=== PATIENT | male | born 1980 | race Caucasian/White ===

== ENCOUNTER 2017-07-01 10:32 | Emergency (ER) | payer BC ==
[~2017-07-01] VITALS: Ht 180.3 cm; Wt 97.5 kg
[~2017-07-01 10:32] MED LIST: ACETAMINOPHEN325 M1 PO; AMLODIPINE BESY10 MG PO; AMLODIPINE BESYL5 MG PO; DIOVAN160 MG PO; HYDROCODON-ACE1 EAC9 PO; PANTOPRAZOLE SO20 MG PEG; [UNRECOGNIZED DRUG - MIXTURE] PO
[2017-07-01] MEDS ORDERED: SODIUM CHLORIDE 0.9% 1000ML 1,000 ML IV STA (11:39)
[2017-07-01] MEDS ORDERED: ONDANSETRON HCL INJ 2 MG/ML VIAL IV STA (11:39)
[2017-07-01 11:44] LABS: BASOPHILS % 0.2 % (0.0-1.0); EOSINOPHILS % 0.4 % (0.0-6.0); HEMATOCRIT 34.2 % (38.2-49.6); HEMOGLOBIN 11.7 g/dL (14.0-18.0); LYMPHOCYTES % 11.5 % (18.0-39.1); MEAN CORPUSCULAR HGB CONC 34.2 g/dL (31-35); MEAN CORPUSCULAR VOLUME 87.7 fL (81-99); MONOCYTES # (AUTO) 0.7 (0.2-0.8); MONOCYTES % 8.1 % (4.4-11.3); NEUTROPHILS # (AUTO) 7.2 (2.1-6.9); NEUTROPHILS % 79.5 % (38.7-80.0); PLATELET COUNT 185 x10e3/uL (140-360); RED CELL DISTRIBUTION WIDTH 14.1 % (11.7-14.4)
[2017-07-01] MEDS ORDERED: MORPHINE SULFATE 2 MG/ML SYR IV ONE (12:00)
[2017-07-01 12:07] LABS: ALANINE AMINOTRANSFERASE 11 IU/L (0-55); ALBUMIN/GLOBULIN RATIO 0.7 (0.8-2.0); ALKALINE PHOSPHATASE 72 IU/L (40-150); AMYLASE 81 U/L (25-125); ANION GAP 15.5 mmol/L (8-16); BLOOD UREA NITROGEN 12 mg/dL (7-26); BUN/CREATININE RATIO 17 (6-25); CALCIUM 9.1 mg/dL (8.4-10.2); CARBON DIOXIDE 24 mmol/L (22-29); CHLORIDE 100 mmol/L (98-107); CHOLESTEROL 146 MD/DL (0-199); EST GLOMERULAR FILTRATION RATE > 60 ML/MIN (60-); GLUCOSE 83 mg/dL (74-118); HDL CHOLESTEROL 35 MG/DL (40-60); LIPASE 121 U/L (8-78); POTASSIUM 3.5 mmol/L (3.5-5.1); SODIUM 136 mmol/L (136-145)
[2017-07-01 12:37] LABS: TRIGLYCERIDES 92 MG/DL (0-149)
[2017-07-01 12:38] LABS: CHOL/HDL RATIO 4.2 (3.9-4.7); LDL CHOLESTEROL 93 MG/DL (60-130)
[2017-07-01] MEDS ORDERED: ZOFRAN4 MG SL (12:42)
[2017-07-01] MEDS ORDERED: ZOFRAN ODT4 MG SL (12:44)
[2017-07-01] MEDS ORDERED: TYLENOL WITH C1 EACH PO (12:45)
[2017-07-01 12:59] LABS: BILIRUBIN,URINE 1+ (NEGATIVE); CLARITY,URINE CLEAR (CLEAR); COLOR,URINE YELLOW (YELLOW); KETONES,URINE 3+ (NEGATIVE); LEUKOCYTE ESTERASE ,URINE TRACE (NEGATIVE); NITRITE,URINE NEGATIVE (NEGATIVE); PROTEIN,URINE DIPSTICK NEGATIVE (NEGATIVE); URINE UROBILINOGEN 8 mg/dL (0.2 - 1)
[2017-07-01 13:09] LABS: EPITHELIAL CELLS,URINE FEW /LPF; MUCUS,URINE MODERATE (RARE); RBC,URINE 0-5 /HPF (0-5); WBC,URINE (MAN) 0-5 /HPF (0-5)
== END 2017-07-01 13:42 | disposition home or self-care (01) ==
LOC: ER 10:32
DX: R50.9 Fever, unspecified (principal); R10.12 Left upper quadrant pain; R11.2 Nausea with vomiting, unspecified; F17.210 Nicotine dependence, cigarettes, uncomplicated
CPT/HCPCS: 36415; 80053; 80061; 81001; 82150; 83690; 85025; 87086; 99284; J2270; J2405; J7030

== ENCOUNTER 2018-03-13 20:10 | Inpatient (IN) | payer BC ==
[~2018-03-13] VITALS: Ht 180.3 cm; Wt 97.1 kg
[~2018-03-13 20:10] MED LIST changes: +TYLENOL WITH C1 EACH PO; +ZOFRAN ODT4 MG SL; +ZOFRAN4 MG SL
[2018-03-13] MEDS ORDERED: MORPHINE SULFATE INJ 4 MG/ML INJ IV STA ×2 (20:19→23:36)
[2018-03-13] MEDS ORDERED: ONDANSETRON HCL INJ 2 MG/ML VIAL IV STA ×2 (20:19→23:36)
[2018-03-13] MEDS ORDERED: SODIUM CHLORIDE 0.9% 1000ML 1,000 ML IV STA ×2 (20:19→23:36)
[2018-03-13 21:16] LABS: BILIRUBIN,URINE 2+ (NEGATIVE); CLARITY,URINE SL CLOUDY (CLEAR); COLOR,URINE YELLOW (YELLOW); KETONES,URINE 1+ (NEGATIVE); LEUKOCYTE ESTERASE ,URINE NEGATIVE (NEGATIVE); NITRITE,URINE NEGATIVE (NEGATIVE); PROTEIN,URINE DIPSTICK 2+ (NEGATIVE); URINE UROBILINOGEN 8 mg/dL (0.2 - 1)
[2018-03-13 21:17] LABS: AMPHETAMINES SCREEN,URINE NEGATIVE (NEGATIVE); BENZODIAZEPINES SCREEN,URINE NEGATIVE (NEGATIVE); PHENCYCLIDINE SCREEN,URINE NEGATIVE (NEGATIVE)
[2018-03-13 21:24] LABS: BACTERIA,URINE MODERATE /HPF; EPITHELIAL CELLS,URINE MODERATE /LPF; WBC,URINE (MAN) 0-5 /HPF (0-5)
[2018-03-13 21:25] LABS: AMORPHOUS SEDIMENT,URINE MODERATE (FEW); MUCUS,URINE MANY (RARE)
[2018-03-13 21:28] LABS: BASOPHILS % 0.2 % (0.0-1.0); EOSINOPHILS % 0.3 % (0.0-6.0); HEMATOCRIT 41.7 % (38.2-49.6); HEMOGLOBIN 14.2 g/dL (14.0-18.0); LYMPHOCYTES # (AUTO) 1.2 (1.0-3.2); LYMPHOCYTES % 11.5 % (18.0-39.1); MEAN CORPUSCULAR HEMOGLOBIN 29.7 pg (28-32); MEAN CORPUSCULAR HGB CONC 34.1 g/dL (31-35); MEAN CORPUSCULAR VOLUME 87.2 fL (81-99); MONOCYTES # (AUTO) 0.7 (0.2-0.8); MONOCYTES % 6.5 % (4.4-11.3); NEUTROPHILS # (AUTO) 8.2 (2.1-6.9); NEUTROPHILS % 80.9 % (38.7-80.0); PLATELET COUNT 161 x10e3/uL (140-360); RED BLOOD COUNT 4.78 x10e6/uL (4.3-5.7); RED CELL DISTRIBUTION WIDTH 13.6 % (11.7-14.4)
[2018-03-13 21:56] LABS: INR 0.95; PROTHROMBIN TIME 13.5 seconds (11.9-14.5)
[2018-03-13 21:57] LABS: PARTIAL THROMBOPLASTIN TIME 33.1 seconds (23.8-35.5)
[2018-03-13 22:07] LABS: ALANINE AMINOTRANSFERASE 16 IU/L (0-55); ALKALINE PHOSPHATASE 82 IU/L (40-150); AMYLASE 195 U/L (25-125); ANION GAP 15.8 mmol/L (8-16); BLOOD UREA NITROGEN 16 mg/dL (7-26); BUN/CREATININE RATIO 15 (6-25); CALCIUM 10.4 mg/dL (8.4-10.2); CARBON DIOXIDE 30 mmol/L (22-29); CHLORIDE 95 mmol/L (98-107); CREATINE KINASE 51 IU/L (30-200); CREATININE, SERUM 1.04 mg/dL (0.72-1.25); EST GLOMERULAR FILTRATION RATE > 60 ML/MIN (60-); GLUCOSE 101 mg/dL (74-118); LIPASE 282 U/L (8-78); POTASSIUM 3.8 mmol/L (3.5-5.1); SODIUM 137 mmol/L (136-145)
[2018-03-14] VITALS (7 sets, daily range): BP systolic 128–151; BP diastolic 72–102
--- NOTE | 2018-03-14 00:04 | Diagnostic Imaging Report ---
EXAM: CT ABDOMEN/PELVIS W DATE: 03/13/2018 8:19 PM INDICATION: Pancreatitis, abdominal pain COMPARISON: MRI from 11/18/2016, CT 11/14/2016 TECHNIQUE: The abdomen and pelvis were scanned using a multidetector helical scanner. Coronal and sagittal reformations were obtained. CT low dose techniques were utilized, as applicable. IV Contrast: 100 ml Isovue 300/370 FINDINGS: LOWER THORAX: No consolidations. Nonspecific 3 to 4 mm left basilar subpleural nodule. LIVER/BILIARY: No masses. No ductal dilatation. GALLBLADDER: Unremarkable SPLEEN: Unremarkable PANCREAS: No pancreatic ductal dilation. Several peripancreatic pseudocysts are again seen along the pancreatic body measuring 2.9 x 2 cm and 2.2 x 1.3 cm. The largest pseudocyst has resolved. Subtle peripancreatic stranding. ADRENALS: No nodules KIDNEYS: No suspicious renal masses. No hydronephrosis. GI TRACT: Marked thickening and some mucosal edema involving the stomach. No evidence of bowel obstruction. Normal appendix. Diverticulosis. 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 PERITONEUM/RETROPERITONEUM: No free air or fluid LYMPH NODES: Likely reactive. Pancreatic nodes. REPRODUCTIVE ORGANS/BLADDER: Unremarkable SOFT TISSUES: Small fat-containing inguinal hernias. BONES: No suspicious bone lesions. IMPRESSION: 1. Findings of mild acute pancreatitis with persistent peripancreatic pseudocysts, seen dating back to 2016. Sequelae of chronic splenic vein thrombosis. 2. Marked gastric wall thickening, presumably reactive gastritis. Signed by: Dr Justina Jones MD on 03/14/2018 12:01 AM
[2018-03-14] MEDS ORDERED: MORPHINE SULFATE 2 MG/ML SYR IV STA (01:08)
[2018-03-14] MEDS ORDERED: CLONIDINE HCL 0.1 MG TAB PO ONE (01:15)
[2018-03-14] MEDS ORDERED: IOPAMIDOL 370 MG/ML 200 ML INFUS..BTL INJ ONE (01:32)
[2018-03-14] MEDS ORDERED: SODIUM CHLORIDE 0.9% 50ML 50 ML ONE (01:32)
[2018-03-14] MEDS ORDERED: PANTOPRAZOLE 40 MG 10ML VIAL IV STA (01:42)
[2018-03-14] MEDS ORDERED: D5.45%NS/KCL 20MEQ 1,000 ML IV ONE (01:45)
--- OUTSIDE RECORDS SUMMARY | 2018-03-14 01:50 | XMS REPORT ---
Author Author [facility] Address Unknown Phone Unavailable Care Team Providers Care Negotiations Director Name Role Phone Chintan MADRIGAL Unavailable Unavailable Problems This patient has no known problems. Allergies, Adverse Reactions, Alerts This patient has no known allergies or adverse reactions. Medications This patient has no known medications. Results Test Description Test Time Test Comments Text Results Atomic Results Result Comments CT ABDOMEN/PELVIS W 2018-03-13 23:50:00 [facility] [address] [address] Patient Name: JULIANO FLORES MR #: [id number] : 1980 Age/Sex: 37/M Req #: [id number] Adm Physician: Ordered by: JEREMIAS BENNETT RADIOLOGY MANAGER Report #: [id number] Location: ER Room/Bed: Procedure: [id number] CT/CT ABDOMEN/PELVIS W Exam Date: 03/13/18 Exam Time: 5 REPORT STATUS: Signed EXAM: CT ABDOMEN/PELVIS W DATE: 03/13/2018 8:19 PM INDICATION: Pancreatitis, abdominal pain COMPARISON: MRI from 11/18/2016, CT 11/14/2016 TECHNIQUE: The abdomen and pelvis were scanned using a multidetector helical scanner. Coronal and sagittal reformations were obtained. CT low dose techniques were utilized, as applicable. IV Contrast: 100 ml Isovue 300/370 FINDINGS: LOWER THORAX: No consolidations. Nonspecific 3 to 4 mm left ba silar subpleural nodule. LIVER/BILIARY: No masses. No ductal dilatation. GALLBLADDER: Unremarkable SPLEEN: Unremarkable PANCREAS: No pancreatic ductal dilation. Several peripancreatic pseudocysts are again seen along the pancreatic body measuring 2.9 x 2 cm and 2.2 x 1.3 cm. The largest pseudocyst has resolved. Subtle peripancreatic stranding. ADRENALS: No nodules KIDNEYS: No suspicious renal masses. No hydronephrosis. GI TRACT: Marked thickening and some mucosal edema involving the stomach. No evidence of bowel obstruction. Normal appendix. Diverticulosis. 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 PERITONEUM/RETROPERITONEUM: No free air or fluid LYMPH NODES: Likely reactive. Pancreatic nodes. REPRODUCTIVE ORGANS/BLADDER: Unremarkable SOFT TISSUES: Small fat-containing inguinal hernias. BONES: No suspicious bone lesions. IMPRESSION: 1. Findings of mild acute pancreatitis with persistent peripancreatic pseudocysts, seen dating back to 2017. Sequelae of chronic splenic vein thrombosis. 2. Marked gastric wall thickening, presumably reactive gastritis. Signed by: Dr Lisset Jones MD on 03/14/2018 12:01 AM Dictated By: LISSET JONES MD 0001 Transcribed By: JO on 03/14/18 0001 COPY TO: JEREMIAS BENNETT NP
[2018-03-14 01:56] LABS: CHOL/HDL RATIO 2.7 (3.9-4.7)
[2018-03-14] MEDS: MORPHINE SULFATE 2 MG/ML SYR IV PRN ×2 (04:40→08:38)
[2018-03-14] MEDS: ONDANSETRON HCL INJ 2 MG/ML VIAL IV PRN ×2 (04:40→08:38)
[2018-03-14] MEDS: PANTOPRAZOLE 40 MG 10ML VIAL IV SCH (08:38)
[2018-03-14] MEDS ORDERED: HYDRALAZINE HCL 20 MG/ML VIAL IV PRN (11:30)
[2018-03-14] MEDS ORDERED: ACETAMINOPHEN 325 MG TAB PO PRN (11:30)
[2018-03-14] MEDS: D5.45%NS/KCL 20MEQ 1,000 ML IV SCH ×2 (11:55→19:13)
[2018-03-14] MEDS: MORPHINE SULFATE INJ 4 MG/ML INJ IV PRN ×4 (12:16→22:40)
[2018-03-14] MEDS: CEFTRIAXONE SOD 1 GM VIAL IV SCH ×2 (12:37→23:50)
[2018-03-14] MEDS: NIFEDIPINE CR 30 MG TAB PO SCH (12:37)
[2018-03-15] MEDS: D5.45%NS/KCL 20MEQ 1,000 ML IV SCH ×2 (01:04→08:36)
[2018-03-15] MEDS: MORPHINE SULFATE INJ 4 MG/ML INJ IV PRN ×4 (01:52→11:24)
[2018-03-15 04:30] VITALS: BP 128/78
[2018-03-15 06:15] LABS: BASOPHILS % 0.4 % (0.0-1.0); EOSINOPHILS # (AUTO) 0.3 (0.0-0.4); EOSINOPHILS % 4.6 % (0.0-6.0); HEMATOCRIT 34.9 % (38.2-49.6); HEMOGLOBIN 11.6 g/dL (14.0-18.0); LYMPHOCYTES # (AUTO) 1.7 (1.0-3.2); LYMPHOCYTES % 31.9 % (18.0-39.1); MEAN CORPUSCULAR HEMOGLOBIN 29.7 pg (28-32); MEAN CORPUSCULAR HGB CONC 33.2 g/dL (31-35); MEAN CORPUSCULAR VOLUME 89.3 fL (81-99); MONOCYTES # (AUTO) 0.4 (0.2-0.8); MONOCYTES % 7.8 % (4.4-11.3); NEUTROPHILS % 55.1 % (38.7-80.0); PLATELET COUNT 138 x10e3/uL (140-360); RED BLOOD COUNT 3.91 x10e6/uL (4.3-5.7); RED CELL DISTRIBUTION WIDTH 13.5 % (11.7-14.4)
[2018-03-15 06:33] LABS: ALANINE AMINOTRANSFERASE 13 IU/L (0-55); ALBUMIN/GLOBULIN RATIO 0.9 (0.8-2.0); ALKALINE PHOSPHATASE 66 IU/L (40-150); AMYLASE 125 U/L (25-125); ANION GAP 9.3 mmol/L (8-16); BLOOD UREA NITROGEN 9 mg/dL (7-26); BUN/CREATININE RATIO 10 (6-25); CALCIUM 9.2 mg/dL (8.4-10.2); CARBON DIOXIDE 27 mmol/L (22-29); CHLORIDE 99 mmol/L (98-107); CREATININE, SERUM 0.91 mg/dL (0.72-1.25); EST GLOMERULAR FILTRATION RATE > 60 ML/MIN (60-); GLUCOSE 106 mg/dL (74-118); LIPASE 144 U/L (8-78); MAGNESIUM 2.2 MG/DL (1.3-2.1); POTASSIUM 4.3 mmol/L (3.5-5.1); SODIUM 131 mmol/L (136-145)
[2018-03-15 08:02] VITALS: BP 131/91
[2018-03-15] MEDS: PANTOPRAZOLE 40 MG 10ML VIAL IV SCH (08:36)
[2018-03-15] MEDS: NIFEDIPINE CR 30 MG TAB PO SCH (08:36)
[2018-03-15] MEDS ORDERED: CEFTIN PO (08:46)
[2018-03-15] MEDS ORDERED: ZOFRAN ODT4 MG SL (08:46)
[2018-03-15] MEDS ORDERED: TYLENOL WITH C1 EACH PO (08:46)
[2018-03-15] MEDS ORDERED: NIFEDIPINE ER30 M1 PO (08:46)
[2018-03-15 09:15] VITALS: BP 131/91
[2018-03-15] MEDS: CEFTRIAXONE SOD 1 GM VIAL IV SCH (11:25)
[2018-03-15 12:29] VITALS: BP 145/71
--- NOTE | 2018-03-15 17:00 | Discharge Summary ---
ADMISSION DIAGNOSES 1. Pancreatitis. 2. Hypertension. 3. History of anemia. 4. Chronic back pain. 5. Hypercalcemia. 6. Urinary tract infection. DISCHARGE DIAGNOSES 1. Pancreatitis. 2. Hypertension. 3. History of anemia. 4. Chronic back pain. 5. Hypercalcemia. 6. Urinary tract infection. 7. Bradycardia. 8. Hyponatremia. 9. Hypermagnesemia. HISTORY: Patient has a history of hypertension, chronic back pain, pancreatitis. PAST SURGICAL HISTORY: Patient denies surgical history. FAMILY HISTORY: Patient's dad has diabetes. SOCIAL HISTORY: Patient denies alcohol and illicit drug use. He admits to smoking half a pack of cigarettes a day since he was 16 years old. HOSPITAL COURSE: A 37-year-old male complains of epigastric pain that began on Monday. Pain is sharp and constant. He had associated nausea and vomiting that began on Monday and a temperature of 100.3 on the day prior to admission. On admission patient was started on IV fluids, Zofran, pain control. Patient refused a GI consult. He was started on nifedipine for his uncontrolled hypertension. On admission his hemoglobin was 14.2. Patient's calcium was 10.4 on admission. He was given IV fluids and it came down. Patient's UA was positive for bacteria, mucus. Urine culture was pending; so, patient was started on Rocephin. CT of the abdomen on admission showed findings of mild acute pancreatitis with persistent peripancreatic pseudocysts seen dating back to 2010. Day after admission patient said that he will go AMA if we do not discharge him as he needs to work and there is no way around it. Patient was discharged home, tolerating a clear-liquid diet. He will advance the diet as tolerated. He was given nausea medicine, Tylenol No. 3, nifedipine and Ceftin. Patient says he has dealt with pancreatitis enough that he knows how to and he says he cannot take off more than 2 days of work; so, he has to leave. Patient will discharge home on his own accord, follow up with primary care in 1 to 2 weeks and return to work as he feels he can tolerate it. Vital signs stable, patient afebrile. Patient understands discharge instructions and agrees to plan. Dictated by: Radha Bonilla NP PERFECTO TINSLEY MD Job#: [id number] EV
== END 2018-03-15 13:35 | disposition home or self-care (01) | DRG 439 ==
LOC: ER 20:10 → ERHOLD 03-14 01:47 → MED/SURG 03-14 02:50
PROVIDERS: ADMIT Internal Medicine; ATTEND Internal Medicine
DX: K85.90 Acute pancreatitis without necrosis or infection, unspecified (principal); N39.0 Urinary tract infection, site not specified; E87.1 Hypo-osmolality and hyponatremia; I10 Essential (primary) hypertension; E83.41 Hypermagnesemia; E83.52 Hypercalcemia; R00.1 Bradycardia, unspecified; F17.210 Nicotine dependence, cigarettes, uncomplicated; M54.9 Dorsalgia, unspecified; G89.29 Other chronic pain; Z83.3 Family history of diabetes mellitus; D64.9 Anemia, unspecified
CPT/HCPCS: 36415; 74177; 80053; 80061; 80307; 80320; 81001; 82150; 82550; 82553; 83605; 83690; 83735; 84484; 85025; 85610; 85730; 87086; 96361; 99284; J0360; J0696; J2270; J2405; J7030; Q9967

== ENCOUNTER 2018-05-20 18:35 | Inpatient (IN) | payer BC ==
[~2018-05-20] VITALS: Ht 180.3 cm; Wt 97.1 kg
[~2018-05-20 18:35] MED LIST changes: +CEFTIN PO; +NIFEDIPINE ER30 M1 PO
[2018-05-20] MEDS ORDERED: SODIUM CHLORIDE 0.9% 1000ML 1,000 ML IV STA (19:02)
[2018-05-20] MEDS ORDERED: ONDANSETRON HCL INJ 2 MG/ML VIAL IV NR (19:02)
[2018-05-20 19:31] LABS: BASOPHILS % 0.3 % (0.0-1.0); EOSINOPHILS # (AUTO) 0.1 (0.0-0.4); EOSINOPHILS % 1.1 % (0.0-6.0); HEMATOCRIT 45.6 % (38.2-49.6); LYMPHOCYTES # (AUTO) 1.8 (1.0-3.2); MEAN CORPUSCULAR HEMOGLOBIN 30.5 pg (28-32); MEAN CORPUSCULAR HGB CONC 35.1 g/dL (31-35); MONOCYTES # (AUTO) 0.6 (0.2-0.8); MONOCYTES % 5.6 % (4.4-11.3); NEUTROPHILS # (AUTO) 7.9 (2.1-6.9); NEUTROPHILS % 75.8 % (38.7-80.0); PLATELET COUNT 193 x10e3/uL (140-360); RED BLOOD COUNT 5.24 x10e6/uL (4.3-5.7); RED CELL DISTRIBUTION WIDTH 13.6 % (11.7-14.4)
[2018-05-20 19:52] LABS: ALANINE AMINOTRANSFERASE 22 IU/L (0-55); ALBUMIN 4.4 g/dL (3.5-5.0); ALBUMIN/GLOBULIN RATIO 1.2 (0.8-2.0); ALKALINE PHOSPHATASE 90 IU/L (40-150); ANION GAP 19.7 mmol/L (8-16); BLOOD UREA NITROGEN 16 mg/dL (7-26); BUN/CREATININE RATIO 16 (6-25); CALCIUM 10.1 mg/dL (8.4-10.2); CARBON DIOXIDE 23 mmol/L (22-29); CHLORIDE 97 mmol/L (98-107); CHOL/HDL RATIO 3.6 (3.9-4.7); CHOLESTEROL 179 MD/DL (0-199); CREATININE, SERUM 0.98 mg/dL (0.72-1.25); EST GLOMERULAR FILTRATION RATE > 60 ML/MIN (60-); GLUCOSE 87 mg/dL (74-118); HDL CHOLESTEROL 50 MG/DL (40-60); LDL CHOLESTEROL 108 MG/DL (60-130); LIPASE 172 U/L (8-78); MAGNESIUM 2.1 MG/DL (1.3-2.1); POTASSIUM 3.7 mmol/L (3.5-5.1); SODIUM 136 mmol/L (136-145); TRIGLYCERIDES 107 MG/DL (0-149)
[2018-05-20] MEDS ORDERED: HYDROMORPHONE 1MG/1ML INJ IV STA (21:12)
[2018-05-20] MEDS ORDERED: HYDROMORPHONE 2MG/ML 2 MG/ML ML ONE (21:16)
--- NOTE | 2018-05-20 22:07 | Diagnostic Imaging Report ---
EXAM: CT ABDOMEN AND PELVIS with IV CONTRAST DATE: 05/20/2018 8:49 PM Time stamp on Exam: 2140 hours INDICATION: Mid epigastric pain, vomiting COMPARISON: CT of the abdomen and pelvis with IV contrast March 13, 2018 TECHNIQUE: The abdomen and pelvis were scanned using a multidetector helical scanner. Coronal and sagittal reformations were obtained. Dose modulation, iterative reconstruction, and/or weight based adjustment of the mA/kV was utilized to reduce the radiation dose to as low as reasonably achievable. Routine protocol performed. IV Contrast: 100 cc Isovue-370 Oral Contrast: Water FINDINGS: LOWER THORAX: No consolidations LIVER: No masses BILIARY: The gallbladder is unremarkable. No ductal dilation. SPLEEN: No masses PANCREAS: Interval increase in size of the pseudocyst at the anterior body of the pancreas, previously measuring 2.9 cm, now measuring 5.8 x 4 cm. The smaller pseudocyst in the posterior body has slightly decreased in size from 2.2 cm to 1.5 cm and now contains a coarse calcification. Mild peripancreatic inflammation. The pancreas is perfused. ADRENALS: No nodules KIDNEYS: Symmetric perfusion. No enhancing masses. No hydronephrosis. GI TRACT: Marked edema of the gastric wall along the lesser curvature, increased from prior exam. Reactive wall thickening of the third and fourth segments of the duodenum. VESSELS: Multiple splenic and mesenteric varices and chronic occlusion of the splenic vein PERITONEUM/RETROPERITONEUM: No free air or fluid LYMPH NODES: Stable subcentimeter reactive peripancreatic lymph nodes. REPRODUCTIVE ORGANS: Unremarkable BLADDER: Unremarkable SOFT TISSUES: Unremarkable BONES: No suspicious bone lesions. IMPRESSION: Mild acute pancreatitis with interval increase in size of the anterior body pancreatic pseudocyst now measuring 5.8 x 4 cm. Interval worsening gastric mucosal thickening and edema predominantly along the lesser curvature, which is in direct contact with the largest pseudocyst. Signed by: Dr. Apolonia Noel M.D. on 05/20/2018 10:04 PM
[2018-05-20] MEDS ORDERED: PIPER-TAZ 3.375 GM 50 ML IV STA (22:29)
[2018-05-20] MEDS ORDERED: SODIUM CHLORIDE 0.9% 50ML 50 ML ONE (22:32)
[2018-05-20] MEDS ORDERED: IOPAMIDOL 370 MG/ML 200 ML INFUS..BTL INJ ONE (22:33)
[2018-05-20] MEDS ORDERED: SODIUM CHLORIDE 0.9% 1000ML 1,000 ML ONE (22:56)
[2018-05-20] MEDS: SODIUM CHLORIDE 0.9% 1000ML 1,000 ML IV SCH (23:56)
[2018-05-21] MEDS ORDERED: MORPHINE SULFATE INJ 4 MG/ML INJ ONE ×3 (00:36→08:52)
[2018-05-21] MEDS: MORPHINE SULFATE 2 MG/ML SYR IV PRN ×3 (00:38→08:58)
[2018-05-21] MEDS: HYDRALAZINE HCL 20 MG/ML VIAL IV PRN (02:00)
[2018-05-21] MEDS: ONDANSETRON HCL INJ 2 MG/ML VIAL IV PRN ×4 (04:15→22:23)
--- NOTE | 2018-05-21 06:56 | NUR ---
REPORT TO VERONIQUE SANTIAGO
[2018-05-21] MEDS: SODIUM CHLORIDE 0.9% 1000ML 1,000 ML IV SCH (08:57)
[2018-05-21] MEDS ORDERED: ACETAMINOPHEN 325 MG TAB PO PRN (10:15)
--- NOTE | 2018-05-21 10:16 | NUR ---
Dr. Barroso roundheron at this time.
[2018-05-21] MEDS ORDERED: HYDROMORPHONE 1MG/1ML INJ IV PRN (10:30)
[2018-05-21] MEDS ORDERED: HYDROMORPHONE 2MG/ML 2 MG/ML ML IV PRN (10:30)
--- NOTE | 2018-05-21 11:45 | NUR ---
Dr. Nolberto Perez notified of consult. Orders rec'd, see EMAR.
[2018-05-21] MEDS: MEROPENEM 500MG 500 MG in SODIUM CHLORIDE 0.9% 50ML 50 ML IV SCH ×3 (12:25→23:01)
[2018-05-21] MEDS: LACTATED RINGER'S 1,000 ML IV SCH ×4 (12:25→23:01)
[2018-05-21] MEDS: HYDROMORPHONE 2MG/ML 2 MG/ML ML IV PRN ×4 (12:25→22:23)
[2018-05-21] MEDS: NIFEDIPINE CR 30 MG TAB PO SCH (12:33)
--- NOTE | 2018-05-21 13:19 | History and Physical ---
CHIEF COMPLAINT: Abdominal pain. HISTORY OF PRESENT ILLNESS: This is a 37-year-old male with known history of chronic pancreatitis in the past who has been evaluated several times by GI specialist at [facility] [place] [place] as well as in the [facility]. Comes into the ED with complaints of epigastric abdominal pain. Patient reports that his abdominal pain began on in which he ate too much and reports he ate lots of high-fat, greasy foods leading to his pancreatitis. He was evaluated in the [facility] and was told that there was no surgical intervention needed and that he needed to follow his diet control. He reports that he does endorse eating significant amounts of food on leading to his abdominal pain. Since then, he has been having nausea, vomiting, decreased oral intake. The patient was seen and evaluated at bedside and the medical floor and ER, currently doing well. No new complaints. He still complains of pain. REVIEW OF SYSTEMS PERTINENT POSITIVES: Epigastric abdominal pain, nausea, vomiting, decreased oral intake, dehydration. PERTINENT NEGATIVES: Denies any chest pain, palpitations, dysuria, hematuria, frequency, urgency, lightheadedness, dizziness, headache, shortness of breath, cough, congestion, fever, or any other complaints. Rest of 14-point review of systems have been reviewed with patient and are negative. ALLERGIES: NO KNOWN DRUG ALLERGIES. HOME MEDICATIONS: Nifedipine ER 30 mg daily. PAST MEDICAL HISTORY: Hypertension, chronic pancreatitis. SURGICAL HISTORY: Reports none. FAMILY HISTORY: Hypertension, diabetes. SOCIAL HISTORY: No drugs. No alcohol. Does not smoke. Good social support. VITAL SIGNS: Temperature is 98.5, pulse 72, respiratory rate is 20, blood pressure 171/98, pulse oximetry 100% on room air. LABORATORY DATA: Lab findings show white count 10.4, hemoglobin 16, hematocrit is 45, platelets of 193. Chemistry: Sodium 136, potassium 3.7, chloride 97, bicarb is 23, anion gap of 19, BUN is 16, creatinine 0.98, glucose 87, lactic acid 9.8, calcium 10.1, magnesium 2.1, total bilirubin 1.5. LFTs were normal. Albumin 4.4. LDL is 108, lipase is 172. MICROBIOLOGY: None. IMAGING STUDIES: CT abdomen and pelvis shows mild acute pancreatitis with interval increase in size of the anterior body of the pancreatic pseudocyst, dimension 5.8 x 4 cm. Interval worsening gastric mucosal thickening and edema, predominantly along the lesser curvature which is direct contact with pseudocyst. PHYSICAL EXAM GENERAL: In no acute distress, alert, oriented x3, cooperative on examination. HEENT: Head normocephalic and atraumatic. Eyes: Pupils are equal and reactive to light bilaterally. Extraocular movements are intact bilaterally. NECK: Supple. Good range of motion. Throat with no evidence of any erythema or exudates in the posterior pharynx. Has poor dentition. PULMONARY: Clear to auscultation bilaterally. No wheezing, no rales, no rhonchi, no crackles appreciated. CARDIOVASCULAR: Positive S1, S2. No murmurs, rubs, or gallops appreciated. ABDOMEN: Soft, nondistended. Bowel sounds present. Tender to palpation in the epigastric region with mild guarding and rebound. MUSCULOSKELETAL: Strength is 5/5 throughout. No evidence of any muscle deficit on examination. No weakness appreciated. NEUROLOGIC: Cranial nerves II-XII are grossly intact. No evidence of any neurological deficits on exam. SKIN: Intact. Warm to touch. Good cap refill. PSYCHIATRIC: Normal affect and mood. EXTREMITIES: No edema. Good range of motion throughout. IMPRESSIONS 1. Yjqsq-ku-mykknmc pancreatitis. 2. Medical noncompliance. 3. Hypertension. 4. Chronic pain syndrome. PLANS: At this time, continue with n.p.o., IV fluids, pain control. General surgery and GI have already been consulted. Resume same home medications. Lovenox for DVT prophylaxis. Change his morphine to IV Dilaudid for more pain control. Seems like the patient has had this in the past and so he is tolerant to morphine. Continue with antinausea medication as well otherwise. Job#: [id number] CHET
--- NOTE | 2018-05-21 14:50 | NUR ---
Pt resting quietly on Rt side. Updated on plan of care, understanding verbalized.
[2018-05-21 20:10] VITALS: BP 171/100
[2018-05-21] MEDS ORDERED: PANTOPRAZOLE 40 MG 10ML VIAL IV ONE (20:15)
[2018-05-21 21:15] VITALS: BP 171/100
[2018-05-21] MEDS: PANTOPRAZOL 40MG/SOD CHL 0.9% 50 ML IV SCH (21:20)
[2018-05-21] MEDS ORDERED: MEROPENEM 500 MG VIAL ONE (22:50)
[2018-05-22] VITALS (7 sets, daily range): BP systolic 157–195; BP diastolic 82–115
[2018-05-22] MEDS: PANTOPRAZOL 40MG/SOD CHL 0.9% 50 ML IV SCH ×5 (00:28→20:18)
[2018-05-22] MEDS: LACTATED RINGER'S 1,000 ML IV SCH ×3 (00:28→16:16)
[2018-05-22] MEDS: HYDROMORPHONE 2MG/ML 2 MG/ML ML IV PRN ×8 (01:30→23:10)
[2018-05-22] MEDS ORDERED: SODIUM CHLORIDE 0.9% 50ML 50 ML ONE (02:03)
[2018-05-22] MEDS: HYDRALAZINE HCL 20 MG/ML VIAL IV PRN ×2 (04:40→12:24)
[2018-05-22] MEDS: MEROPENEM 500MG 500 MG in SODIUM CHLORIDE 0.9% 50ML 50 ML IV SCH ×4 (05:15→23:10)
[2018-05-22] MEDS: ONDANSETRON HCL INJ 2 MG/ML VIAL IV PRN ×4 (05:41→20:19)
[2018-05-22] MEDS ORDERED: NIFEDIPINE CR 30 MG TAB PO SCH (09:00)
[2018-05-22] MEDS: NIFEDIPINE CR 30 MG TAB PO SCH ×2 (09:37→17:48)
--- NOTE | 2018-05-22 10:31 | Progress Note ---
DATE: May 22, 2018 SUBJECTIVE: Patient still complains of abdominal pain. According to the patient, his GI doctor told him that he will need to have a procedure that likely will be done in the Medical [facility]. General surgery has been consulted, but has not evaluated the patient. He still complains of the pain. He is on IV antibiotics now. He is afebrile. PHYSICAL EXAMINATION VITAL SIGNS: Temperature is 97.5, pulse 80, respiratory rate is 22, blood pressure 165/91, pulse ox 98% on room air. GENERAL: Not in acute distress. Alert and oriented x 3, cooperative on examination. HEENT: Head, normocephalic and atraumatic. Eyes, pupils are equal, round, and reactive to light bilaterally. Extraocular movements are intact bilaterally. Throat, no evidence of any erythema or exudates in the posterior pharynx, has poor dentition. NECK: Supple. Good range of motion. PULMONARY: Clear to auscultation bilaterally. No wheezing, no rales, no rhonchi. No crackles appreciated. CARDIOVASCULAR: Positive S1 and S2. No murmurs, rubs, or gallops appreciated. ABDOMEN: Soft, nondistended, nontender to palpation. Bowel sounds present. MUSCULOSKELETAL: Strength is 5/5 throughout. No evidence of any muscle deficits on examination. No weakness appreciated. NEUROLOGICAL: Cranial nerves II through XII are grossly intact. No evidence of any neurological deficits on exam. SKIN: Intact. Warm to touch. Good cap refill. PSYCHIATRIC: Normal affect and mood. EXTREMITIES: No edema. Good range of motion throughout. LAB FINDINGS: Show a white count of 10.4, hemoglobin 16, hematocrit is 45.6, platelets 193. Chemistry; sodium 136, potassium 3.7, chloride 97, bicarb 23, anion gap of 19, BUN 16, creatinine 0.98, glucose 137, calcium 10.1, magnesium 2.1. LFTs were normal. MICROBIOLOGY: None. IMAGING STUDIES: None. IMPRESSION 1. Sfjaf-jc-abuenpv pancreatitis with underlying pseudocyst. 2. Medical noncompliance. 3. Hypertension. 4. Chronic pain syndrome. PLAN: At this time, GI recommends a drainage of the pseudocyst, but preferably in the Medical Center. Patient refuses to have that procedure done, waiting on general surgery to give more recommendations. Continue with n.p.o. for now. We are going go start on clear liquid, advance as tolerated once he is ready. Continue with pain control. His blood pressure is still elevated, but it is likely due to pain and he is on antihypertensive at this time. We are also going to change the Zofran to q.4 hours. Continue symptomatic care and monitor closely. Job#: [id number] LPA
--- NOTE | 2018-05-22 11:31 | NUR ---
SOCIAL WORK INITIAL ASSESSMENT Collar Tacker to bedside to discuss plan of care with patient/family. CM/SW role and care transitions discussed. Anticipated discharge plan discussed along with duration of care. CM/SW discussed patients right to make decisions in care. CM/SW work hours given. Patient lives: IN OWN HOME WITH GIRLFRIEND Admit/Transfer: VIA HOME POA/Emergency contact: CORNELIO HUSSEIN [phone] Current/Previous Home Health: NONE PCP/Follow-up Care: NONE HE RETRIED Current/Previous DME: NONE Other Services: NONE Employment Status: NONE Areas of Concerns: NEED NEW PCP, WAITING TO GET ASSIGNED ONE FROM INSURANCE Referral Needs: NONE Education Needs: NONE IMM/CESPEDES given and signed (if applicable): NA Goal for discharge: RETURN HOME INDEPENDENTLY CM/SW left business card at the bedside with contact information. Name and number was also written on the patients whiteboard. Patient verbalized understanding of discussion. CM will follow-up with ongoing discharge and transition of care needs.
--- NOTE | 2018-05-22 18:00 | NUR ---
Received patient from Obs. AAOX4 to time, person, place, situation. Respirations even and unlabored. Oriented patient to room. Instructed to use call light for assistance. Voiced understanding. Will continue to monitor.
--- NOTE | 2018-05-22 18:00 | NUR ---
Spoke with Dr. Barroso around 1300 to report elevated BP and received orders to reduce IVF to 75ml/hr and if Bp is still elevated to call again for new orders. Notified Dr. Barroso of elvated BP at 1600 of 160/91 and received new orders to change procardia to 30mg BID and first dose to be given now. Pt was the transferred to [facility] to inpatient room and report given to nurse receiving pt.
--- NOTE | 2018-05-22 18:40 | NUR ---
Resting in bed, no s/s of acute distress noted. Report to be given to oncoming nurse.
--- NOTE | 2018-05-22 19:22 | NUR ---
PT IS RESTING IN BED. NO RESPIRATORY DISTRESS NOTED, BED IN THE LOWEST POSITION, LOCKED, AND CALL LIGHT WITHIN REACH. WILL CONTINUE TO MONITOR.
--- NOTE | 2018-05-22 20:05 | Consultation ---
DATE OF CONSULTATION: May 22, 2018 CHIEF COMPLAINT: Abdominal pain. HISTORY OF PRESENT ILLNESS: The patient is a 37-year-old male with 4-day history of pain in epigastric area with intermittent nausea and vomiting. Patient has a history of chronic pancreatitis with known pseudocyst formation. Patient has history of alcohol abuse, but stated he stopped drinking 5 years ago. PAST MEDICAL HISTORY: Positive for chronic pancreatitis. SURGICAL HISTORY: Positive for endoscopic gastrocystostomy at another facility. ALLERGIES: PATIENT HAS NO DRUGS ALLERGY. SOCIAL HABITS: He denies smoking or alcohol abuse. REVIEW OF SYSTEMS: No chest pain. No shortness of breath. PHYSICAL EXAMINATION ARYA SIGNS: Stable. He is afebrile. GENERAL: He is awake, alert in jzfu-bq-smjmjrdv discomfort. HEENT: Sclerae nonicteric. NECK: Supple. LUNGS: Clear. HEART: Regular rate and rhythm. ABDOMEN: Soft with some mild guarding in the epigastric area without rebound. EXTREMITIES: Without cyanosis or edema. LABORATORY DATA: White cell count is normal. Lipase is 170. Liver function tests within normal limits. CT scan of the abdomen show evidence of pseudocyst formation in the neck and body of the pancreas which seemed to be increase in size compared to previous CT scan. There is mild pancreatitis. ASSESSMENT: Chronic active pancreatitis in patient with past history of alcohol abuse. PLAN: IV hydration. Diet clear liquid as tolerated. We will follow patient's pain level and tolerance of diet. No urgent need for operative intervention unless pain intensify on diet. Thank you for consultation. Job#: [id number] ORI
[2018-05-22 20:15] LABS: AMYLASE 178 U/L (25-125); LIPASE 195 U/L (8-78)
[2018-05-23] VITALS: BP 161/96
[2018-05-23] MEDS: PANTOPRAZOL 40MG/SOD CHL 0.9% 50 ML IV SCH ×3 (01:23→12:30)
[2018-05-23] MEDS: HYDROMORPHONE 2MG/ML 2 MG/ML ML IV PRN ×3 (01:58→08:00)
[2018-05-23] MEDS: ONDANSETRON HCL INJ 2 MG/ML VIAL IV PRN (01:58)
[2018-05-23 02:06] VITALS: BP 161/96
[2018-05-23 04:00] VITALS: BP 157/90
[2018-05-23] MEDS: MEROPENEM 500MG 500 MG in SODIUM CHLORIDE 0.9% 50ML 50 ML IV SCH ×2 (05:06→12:00)
[2018-05-23 05:15] LABS: BASOPHILS % 0.3 % (0.0-1.0); EOSINOPHILS # (AUTO) 0.4 (0.0-0.4); EOSINOPHILS % 4.2 % (0.0-6.0); HEMATOCRIT 42.7 % (38.2-49.6); HEMOGLOBIN 14.6 g/dL (14.0-18.0); LYMPHOCYTES # (AUTO) 2.2 (1.0-3.2); LYMPHOCYTES % 24.8 % (18.0-39.1); MEAN CORPUSCULAR HEMOGLOBIN 29.6 pg (28-32); MEAN CORPUSCULAR HGB CONC 34.2 g/dL (31-35); MEAN CORPUSCULAR VOLUME 86.6 fL (81-99); MONOCYTES # (AUTO) 0.6 (0.2-0.8); MONOCYTES % 7.1 % (4.4-11.3); NEUTROPHILS # (AUTO) 5.5 (2.1-6.9); NEUTROPHILS % 63.3 % (38.7-80.0); PLATELET COUNT 144 x10e3/uL (140-360); RED BLOOD COUNT 4.93 x10e6/uL (4.3-5.7); RED CELL DISTRIBUTION WIDTH 13.4 % (11.7-14.4)
[2018-05-23 05:34] LABS: ANION GAP 16.7 mmol/L (8-16); BLOOD UREA NITROGEN 7 mg/dL (7-26); BUN/CREATININE RATIO 9 (6-25); CARBON DIOXIDE 23 mmol/L (22-29); CHLORIDE 99 mmol/L (98-107); CREATININE, SERUM 0.76 mg/dL (0.72-1.25); EST GLOMERULAR FILTRATION RATE > 60 ML/MIN (60-); GLUCOSE 79 mg/dL (74-118); POTASSIUM 3.7 mmol/L (3.5-5.1); SODIUM 135 mmol/L (136-145)
[2018-05-23 05:49] LABS: AMYLASE 173 U/L (25-125); LIPASE 196 U/L (8-78)
[2018-05-23] MEDS: LACTATED RINGER'S 1,000 ML IV SCH ×2 (06:30→12:00)
--- NOTE | 2018-05-23 07:00 | NUR ---
Received patient mid fowlers position, side rails upx2, call light within reach. Resting with eyes closed. Arousable to verbal stimuli. Respirations even and unlabored. Will continue to monitor.
[2018-05-23 07:36] VITALS: BP 146/77
[2018-05-23 08:00] VITALS: BP 146/77
[2018-05-23] MEDS: NIFEDIPINE CR 30 MG TAB PO SCH (08:04)
[2018-05-23] MEDS ORDERED: ACETAMINOPHEN/CODEINE 300MG - 30MG TAB PO PRN (09:30)
--- NOTE | 2018-05-23 10:39 | Progress Note ---
DATE: MEDICINE PROGRESS NOTE SUBJECTIVE: Patient reports feeling much better today. He wants his diet advanced. Wants to go home later today if possible. He is on clear liquid diet. He wants to advance it to full liquid and possibly to solids and if he tolerates well, we will discharge tomorrow. PHYSICAL EXAMINATION VITAL SIGNS: Temperature is 96.6, pulse 77, respiratory rate is 18, blood pressure 146/77, pulse ox 96% on room air. GENERAL: Not in acute distress. Alert and oriented x3, cooperative on examination. HEENT: Head, normocephalic and atraumatic. Eyes, pupils are equal, round, and reactive to light bilaterally. Extraocular movements are intact bilaterally. Throat, no evidence of any erythema or exudates in the posterior pharynx, has poor dentition. NECK: Supple. Good range of motion throughout. PULMONARY: Clear to auscultation bilaterally. No wheezing, no rales, no rhonchi. No crackles appreciated. CARDIOVASCULAR: Positive S1 and S2. No murmurs, rubs, or gallops appreciated. ABDOMEN: Soft, nondistended, nontender to palpation. Bowel sounds present. MUSCULOSKELETAL: Strength is 5/5 throughout. No evidence of any muscle deficits on examination. No weakness appreciated. NEUROLOGICAL: Cranial nerves II through XII are grossly intact. No evidence of any neurological deficits on exam. SKIN: Intact. Warm to touch. Good cap refill. PSYCHIATRIC: Normal affect and mood. EXTREMITIES: No edema. Good range of motion throughout. LAB FINDINGS: Show white count is 8.7, hemoglobin 14.6, hematocrit is 43, platelets of 144. Chemistry: sodium 135, potassium 3.7, chloride 99, bicarb 23, anion gap of 16, BUN is 7, creatinine 0.76, glucose 79. His lipase is 196, his amylase is 173. IMPRESSIONS 1. Ockgd-lm-wymmnaf pancreatitis with underlying pseudocyst. 2. Medical noncompliance. 3. Hypertension. 4. Chronic pain syndrome. PLAN: At this time, patient is eager to be discharged and reports that his pain is better controlled. Will discontinue IV Dilaudid, put him on Tylenol with Codeine No. 3. Advance his diet to full liquid diet. His lipase is still slightly elevated but he is eager to be discharged. If cleared by the consultants, will likely be discharged home later today if he tolerates diet as well. Will discharge on some oral Tylenol No. 3 for pain control. Job#: [id number] TA
[2018-05-23 12:02] VITALS: BP 162/95
--- NOTE | 2018-05-23 14:00 | NUR ---
Patient wants to be discharged. States "I have to go, I have some things I have to take care of" aware. Per "Please get 's recommendations"
--- NOTE | 2018-05-23 14:05 | NUR ---
Per . "Patient to have MRCP prior to discharge to assess, pseudocyst or follow up with at, [facility] 2-3 days from now., Patient to remain on full liquid diet
--- NOTE | 2018-05-23 14:10 | NUR ---
Notified patient of orders. Patient states "I dont want that test done. I am not going to go anywhere unless I start hurting. I will leave AMA. I am aware of what I have, I have been dealing with this for a long time. " aware of situation. States "at this time patient cannot be discharged"
--- NOTE | 2018-05-23 14:20 | NUR ---
Patient signed AMA form. notified.
--- NOTE | 2018-05-23 14:25 | NUR ---
Left FA IV discontinued. No signs of infiltration noted. 2x2 gauze and paper tape place. AAOX4 to time,person, place, situation. Respirations even and unlabored. No s/s of acute distress noted when leaving unit.
--- NOTE | 2018-05-24 14:36 | Discharge Summary ---
DISCHARGE DIAGNOSES 1. The patient left against medical advice. 2. [place] pancreatitis with underlying pseudocyst. 3. Medical noncompliance. 4. Hypertension. 5. Chronic pain syndrome. CONSULTANTS: General surgery and GI. VITAL SIGNS: Temperature 98.6, pulse 102, respiratory rate 18, blood pressure 162/95, pulse ox 99% on room air. LAB FINDINGS: Show a white count of 8.7, hemoglobin 14, hematocrit is 42, and platelets are 144,000. Chemistry: Sodium 135, potassium 3.7, chloride 99, bicarb 23, anion gap of , BUN 7, creatinine 0.7, glucose 79. Calcium is 9. MICROBIOLOGY: None. IMAGING STUDIES: CT of the abdomen and pelvis was consistent with acute pancreatitis with underlying pseudocyst, 5.8 x 4 cm. HOSPITAL COURSE: A 37-year-old male who has a known history of chronic pancreatitis comes in with complaints of epigastric abdominal pain, nausea, vomiting, and decreased oral intake. He was found to have acute pancreatitis seen on imaging studies. CT of the abdomen and pelvis also was consistent with a pseudocyst. GI and general surgery was consulted. Per GI, they recommended the patient to be transferred to [facility] [place] possible [place] and to be further evaluated. Patient refused. Patient was on IV antibiotics while here in the hospital. He was n.p.o. and on pain control as well. He was advanced from clear liquid to full liquids, as well as to solid prior to being discharged home. Per GI recommendations and general surgery, it was recommended that he be transferred to get further evaluation in which the patient refused. Patient left against medical advice on May 23, 2018. DISPOSITION: Left against medical advice. CONDITION: Left against medical advice. In the event of any worsening symptoms, he was advised to come back to the ED for further evaluation. Discharge summary took greater than 35 minutes. Again, the patient left against medical advice, and signed appropriate documentation, which was left in the chart. JUJU RODRIGUES MD Job#: [id number]
== END 2018-05-23 14:25 | disposition home or self-care (01) | DRG 439 ==
LOC: ER 18:35 → ERHOLD 23:59 → INTOOBSV 23:59 → IMCU 05-21 19:57 → OBSVTOIN 05-22 14:00 → MED/SURG3 05-22 17:45
PROVIDERS: ADMIT Internal Medicine; ATTEND Internal Medicine
DX: K85.20 Alcohol induced acute pancreatitis without necrosis or infection (principal); F10.188 Alcohol abuse with other alcohol-induced disorder; K86.3 Pseudocyst of pancreas; Z82.49 Family history of ischemic heart disease and other diseases of the circulatory system; I10 Essential (primary) hypertension; G89.4 Chronic pain syndrome; Z91.19 Patient's noncompliance with other medical treatment and regimen
CPT/HCPCS: 36415; 74177; 80048; 80053; 80061; 82150; 83605; 83690; 83735; 84478; 85025; 96361; 99284; G0378; J0360; J2185; J2270; J2405; J2543; J7030; J7120; Q9967